=== PATIENT | female | born 1960 | race Caucasian/White ===

== ENCOUNTER 2023-07-18 10:15 | Outpatient (RCR) | payer BC, SELFPAY | END 2023-10-01 16:01 | disposition home or self-care (01) | LOC: HO.WCC 10:15 | PROVIDERS: PCP Internal Medicine; Visit Provider Physician Assistant | DX: S81.011A Laceration without foreign body, right knee, initial encounter (principal); I87.2 Venous insufficiency (chronic) (peripheral); M54.16 Radiculopathy, lumbar region; Z79.01 Long term (current) use of anticoagulants; Z79.899 Other long term (current) drug therapy | CPT/HCPCS: 11042; 99212 ==